=== PATIENT | female | born 1995 | race Caucasian/White ===

== ENCOUNTER → 2020-02-07 | Outpatient (CLI) | payer OTHER ==
[~2020-02-07] MED LIST: COLACE 100MG C100 MG PO; FERROUS SULFAT325 MG PO; IBUPROFEN600 MG PO; LABETALOL HCL200 MG PO; LABETALOL HCL300 MG PO; LORTAB 5-325 M1 EACH PO; PRENATAL VITAM1 EAC8 PO; VITAMIN B-625 MG PO
== END ==
LOC: LAB 12:21
DX: N91.2 Amenorrhea, unspecified (principal)
CPT/HCPCS: 84702

== ENCOUNTER 2020-11-09 22:25 | Inpatient (IN) | payer OTHER ==
[2020-11-10 01:15] LABS: HEMOGLOBIN 9.1 gm/dl (12.3-15.3); RED BLOOD COUNT 3.77 M/UL (4.00-5.10); WHITE BLOOD COUNT 12.4 K/UL (4.5-11.0)
[2020-11-10 03:19] LABS: HEMOGLOBIN 8.1 gm/dl (12.3-15.3)
[2020-11-10 07:11] LABS: HEMOGLOBIN 9.1 gm/dl (12.3-15.3)
[2020-11-10] MEDS ORDERED: DOCUSATE SODIU100 MG PO (08:07)
[2020-11-10] MEDS ORDERED: HYDROCODON-ACE1 EAC4 PO (08:07)
[2020-11-10 15:36] LABS: HEMOGLOBIN 7.1 gm/dl (12.3-15.3)
[2020-11-11 07:02] LABS: HEMOGLOBIN 6.5 gm/dl (12.3-15.3)
[2020-11-11 18:57] LABS: HEMOGLOBIN 8.5 gm/dl (12.3-15.3)
== END 2020-11-11 19:00 | disposition home or self-care (01) | DRG 787 ==
LOC: GENOP 22:25 → OB 11-10 01:38
PROVIDERS: Obstetrics & Gynecology; ADMIT Obstetrics & Gynecology
PROC: 4A1HXCZ Monitoring of Products of Conception, Cardiac Rate, External Approach (ICD-10-PCS; 2020-11-09)
PROC: 0UT90ZZ Resection of Uterus, Open Approach (ICD-10-PCS; 2020-11-10)
PROC: 30233R1 Transfusion of Nonautologous Platelets into Peripheral Vein, Percutaneous Approach (ICD-10-PCS; 2020-11-10)
PROC: 10D00Z1 Extraction of Products of Conception, Low, Open Approach (ICD-10-PCS; principal; 2020-11-10 01:54)
DX: O34.211 Maternal care for low transverse scar from previous cesarean delivery (principal); O72.1 Other immediate postpartum hemorrhage; D62 Acute posthemorrhagic anemia; Z20.822 Contact with and (suspected) exposure to COVID-19; Z3A.37 37 weeks gestation of pregnancy; Z37.0 Single live birth; O90.81 Anemia of the puerperium; Z86.16 Personal history of COVID-19
CPT/HCPCS: 36415; 36430; 74018; 81001; 85014; 85018; 85025; 86850; 86900; 86901; 86920; 86922; 90715; J1170; J2210; J2250; J2274; J2370; J2550; J2590; J2704; J3010; J7120; P9016